=== PATIENT | female | born 1950 | race Caucasian/White ===

== ENCOUNTER 2020-04-26 13:05 | Outpatient (CLI) | payer MEDICARE, OTHER, SELFPAY ==
--- NOTE | ~2020-04-26 | XR_ITS ---
EXAMINATION: HAND-KELI ARTHRITIS 3+VIEWS DATE: 04/26/2020 13:47 INDICATION: Rheumatoid arthritis and limited range of motion. TECHNIQUE: Posteroanterior, lateral, and oblique views of the left and of the right hands as well as a ballcatchers view of both hands were obtained. COMPARISON: None. FINDINGS: Diffuse osteopenia. No fracture. Relatively symmetric pattern of severe polyarticular osteoarthritis at the wrists and carpi and most most prominent at the bilateral distal radioulnar, radiocarpal, firs t carpometacarpal and metacarpal joints. Additional moderate to severe polyarticular osteoarthritis t o some degree involving all of the bilateral metacarpophalangeal and interphalangeal joints most prom inent at the left first metacarpophalangeal and third proximal interphalangeal joints and at the righ t fourth metacarpophalangeal, first interphalangeal, fifth proximal interphalangeal and third distal interphalangeal joints. No cortical erosions to more specifically suggest an inflammatory arthritis. IMPRESSION: 1. 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 Could not exclude secondary osteoarthritis related to underlying rheumatoid arthritis however there are no erosive changes to more specifically suggest this. Reviewed, dictated and finalized at location [facility] [employer] IMPRESSION: 1. Relatively symmetric severe bilateral polyarticular osteoarthritis at the east nds and wrists. Could not exclude secondary osteoarthritis related to underlyin g rheumatoid arthritis however there are no erosive changes to more specificall y suggest this.
[2020-04-26 15:01] LABS: Basophils Absolute Auto 0.2 K/mm3 (0.0-0.1); Basophils Percent Auto 1.2 % (0.2-1.2); Eosinophils Absolute Auto 0.6 K/mm3 (0-0.3); Eosinophils Percent Auto 3.8 % (0-4.4); Hematocrit 41.4 % (37.0-47.0); Hemoglobin 13.6 g/dL (12.0-15.0); Immature Granulocyte Absolute 0.08 K/mm3 (0.00-0.031); Immature Granulocyte Percent A 0.6 % (0-0.5); Lymphocytes Absolute Auto 3.51 K/mm3 (0.9-3.2); Lymphocytes Percent Auto 24.2 % (18.3-44.2); Mean Corpuscular HGB Conc 32.9 g/dl (32-36); Mean Corpuscular Hemoglobin 30.4 pg (26-34); Mean Corpuscular Volume 92.6 fl (80-100); Mean Platelet Volume 10.9 fl (7.4-10.4); Monocytes Absolute Auto 0.9 K/mm3 (0.1-0.6); Monocytes Percent Auto 6.4 % (2.6-8.5); Neutrophils Absolute Auto 9.3 K/mm3 (1.3-6.7); Neutrophils Percent Auto 63.8 % (45.5-73.1); Platelet Count Result 536 k/mm3 (150-375); Red Blood Count 4.47 M/mm3 (4.2-5.4); Red Cell Distribution Width 15.3 % (11.5-14.5); White Blood Count 14.5 K/mm3 (4.5-10.0)
[2020-04-26 15:12] LABS: Alanine Aminotransferase 48 U/L (4-35); Albumin Level 4.8 g/dL (3.5-5.1); Alkaline Phosphatase 52 U/L (38-126); Anion Gap 17 mmol/L (8-16); Aspartate Amino Transferase 39 U/L (14-36); Bilirubin,Total 0.4 mg/dL (0.2-1.3); Blood Urea Nitrogen 23 mg/dL (7-17); Calcium 10.6 mg/dL (8.4-10.2); Carbon Dioxide 24 mmol/L (22-30); Chloride 99 mmol/L (98-107); Estimated Glomerular Filt Rate 49; Glucose 99 mg/dL (65-105); Potassium 5.1 mmol/L (3.4-5.0); Sodium 140 mmol/L (137-145)
[2020-04-26 15:14] LABS: Rheumatoid Factor 18.8 IU/ML (<12)
[2020-04-26 15:37] LABS: Erythrocyte Sedimentation Rate 23 mm/hr (0-20)
[2020-04-30 10:55] LABS: Anti Cyclic Citrullinated Pept 188 Units (<20)
[2020-05-03 00:07] LABS: Alpha-1-Antitrypsin, QN 156 mg/dL (83-199)
== END 2020-04-26 13:06 | disposition home or self-care (01) ==
PROVIDERS: PCP Physician Assistant; Visit Provider Internal Medicine
DX: M06.842 Other specified rheumatoid arthritis, left hand (principal); M06.841 Other specified rheumatoid arthritis, right hand; M06.832 Other specified rheumatoid arthritis, left wrist; M06.831 Other specified rheumatoid arthritis, right wrist; Z51.81 Encounter for therapeutic drug level monitoring; Z79.899 Other long term (current) drug therapy; J41.0 Simple chronic bronchitis
CPT/HCPCS: 36415; 73130; 80053; 82103; 85025; 85652; 86038; 86200; 86430

== ENCOUNTER 2020-04-30 13:28 | Outpatient (CLI) | payer MEDICARE, OTHER, SELFPAY ==
[2020-04-30 14:19] LABS: CRP 1.8 mg/dL (<1.0)
[2020-04-30 14:49] LABS: Add Urine Microscopic? YES; Appearance Urine Clear (Clear); Bilirubin Urine Negative (Negative); Color Urine Yellow (Yellow); Glucose Urine UA Negative (Negative); Ketones Urine Negative (Negative); Leukocyte Esterase Ur Negative LEU/UL (Negative); Mucus Urine Rare /lpf; Nitrate Urine Negative (Negative); Protein Urine Negative (Negative); RBC Urine 0-2 /hpf (0-2); Specific Grav Ur 1.015 (1.001-1.035); Squamous Epithelial Cell Urine Rare /hpf (Few); Urobilinogen Urine Negative mg/dL (<2.0)
[2020-04-30 14:51] LABS: Blood Urine Negative (Negative)
[2020-05-02 23:15] LABS: NIL 0.04 IU/mL; Quantiferon TB Plus, 1T NEGATIVE (NEGATIVE); TB1-NIL <0.00 IU/mL; TB2-NIL <0.00 IU/mL
== END 2020-04-30 13:29 | disposition home or self-care (01) ==
PROVIDERS: PCP Physician Assistant; Visit Provider Internal Medicine
DX: M06.9 Rheumatoid arthritis, unspecified (principal); Z79.899 Other long term (current) drug therapy
CPT/HCPCS: 36415; 81001; 86140; 86480; 87086; 87088